=== PATIENT | female | born 1955 | race Caucasian/White ===

== ENCOUNTER 2024-11-01 06:54 | Day surgery (SDC) | payer MEDICARE ==
[~2024-11-01] VITALS: Ht 154.9 cm; Wt 67.1 kg
[~2024-11-01 06:54] MED LIST: ALPRAZOLAM0.5 MG PO; AMITRIPTYLIN25 MG PO; ATENOLOL25 MG PO; ATORVASTATIN CA10 MG PO; AUGMENTIN500TAB PO; BUPROPION150 M3 PO; CIPRO500 MG PO; CIPROFLOXACN500 MG PO; COLACE100 MG OR; DEPO-MEDROL80 MG/ML IM; EC ASPIRIN325 MG PO; FLAGYL500 MG PO; FLEXERIL PO; FLONASE AL50 MCG/ACT; FLORASTOR250 M1 PO; GLIPIZIDE5 MG PO; HYDROCHLOROTH12.5 MG OR; IBUPROFEN600 MG PO; LEVOTHYROXINE PO; LORTAB 1010 MG PO; LOSARTAN POT25 MG PO; MAXZIDE-25MG1 COMBO PO; METAMUCIL0.52 G1; METFORMIN500 MG PO; METRONIDAZOL500 MG PO; METRONIDAZOLE500 MG PO; NAPROSYN500 MG PO; OZEMPIC4 MG SC; PRILOSEC20 MG PO; PROAIR HFA; PROTONIX20 M1 PO; SUCRALFATE1 GM PO; TRAMADOL HCL50 MG PO
[2024-11-01] MEDS ORDERED: FAMOTIDINE 10MG/ML 2ML SDV IV ONE (07:02)
[2024-11-01] MEDS ORDERED: SODIUM CHLORIDE 0.9% 1,000 ML IV ONE (07:02)
[2024-11-01 09:48] VITALS: BP 96/66
[2024-11-01] MEDS ORDERED: GLYCOPYRROLATE 0.2 MG/ML IV ONE (11:28)
[2024-11-01] MEDS ORDERED: LIDOCAINE HCL 2% 2ML SDV IV ONE (11:28)
[2024-11-01] MEDS ORDERED: PROPOFOL 200 MG/20 ML VIAL IV ONE (11:28)
== END 2024-11-01 09:36 | disposition home or self-care (01) ==
LOC: ENDO 06:54 → ORM 11:45 → ENDO 11:45
PROVIDERS: ATTEND Surgery
PROC: 0DBH8ZX Excision of Cecum, Via Natural or Artificial Opening Endoscopic, Diagnostic (ICD-10-PCS; principal; 2024-11-01)
DX: Z12.11 Encounter for screening for malignant neoplasm of colon (principal); D12.0 Benign neoplasm of cecum; K57.30 Diverticulosis of large intestine without perforation or abscess without bleeding; K64.8 Other hemorrhoids; Z87.19 Personal history of other diseases of the digestive system; Z80.0 Family history of malignant neoplasm of digestive organs
CPT/HCPCS: J1596